=== PATIENT | male | born 1990 | race Caucasian/White ===

== ENCOUNTER 2018-08-17 22:25 | Emergency (ER) | payer SELFPAY ==
[~2018-08-17] VITALS: Ht 182.9 cm; Wt 100.0 kg
[2018-08-17 22:29] VITALS: BP 138/92
== END 2018-08-18 00:38 | disposition left against medical advice (07) ==
LOC: EMS 22:28
DX: R10.9 Unspecified abdominal pain (principal); R11.0 Nausea; J45.909 Unspecified asthma, uncomplicated; F17.210 Nicotine dependence, cigarettes, uncomplicated; F11.90 Opioid use, unspecified, uncomplicated; F19.90 Other psychoactive substance use, unspecified, uncomplicated; Z53.21 Procedure and treatment not carried out due to patient leaving prior to being seen by health care provider